=== PATIENT | female | born 1960 | race Caucasian/White ===

== ENCOUNTER → 2023-11-12 07:37 | Outpatient (REF) | payer OTHER, SELFPAY | LOC: EMG 07:37 | PROVIDERS: ATTENDING PHYSICIAN Nurse Practitioner Pediatrics | DX: R20.0 Anesthesia of skin (principal) | CPT/HCPCS: 95886; 95911 ==

== ENCOUNTER → 2025-05-31 09:37 | Outpatient (REF) | payer OTHER, SELFPAY | LOC: HWRAD 09:37 | PROVIDERS: ATTENDING PHYSICIAN Student in an Organized Health Care Education/Training Program | DX: R10.9 Unspecified abdominal pain (principal) | CPT/HCPCS: 76856 ==